=== PATIENT | male | born 1995 | race Two or more races ===

== ENCOUNTER 2016-11-21 17:41 | Emergency (ER) | payer BC, MEDICAID ==
[~2016-11-21] VITALS: Ht 188 cm; Wt 108.9 kg
[2016-11-21] MEDS ORDERED: NKM (18:14)
[2016-11-21 18:29] VITALS: BP 137/81
[2016-11-21] MEDS ORDERED: Famotidine 20 MG/ 2ML VIAL IVP ONE (18:45)
[2016-11-21] MEDS ORDERED: Mylanta II UD 30ml ORAL ONE (18:45)
[2016-11-21] MEDS ORDERED: Dicyclomine HCl 10mg/5ml oral soln ORAL ONE (18:45)
[2016-11-21] MEDS ORDERED: Lidocaine 2% Visc 15ml soln ORAL ONE (18:45)
[2016-11-21 18:56] LABS: APPEARANCE,URINE SLIGHTLY CLOUDY; KETONES,URINE NEGATIVE (NEGATIVE); LEUKOCYTE ESTERASE ,URINE 1+ (NEGATIVE); NITRITE,URINE NEGATIVE (NEGATIVE); PH,URINE 8 (4.5-8.0); PROTEIN,URINE 1+ (NEGATIVE); UROBILINOGEN,URINE NORMAL MG/DL (0.0-1.0)
[2016-11-21 19:18] LABS: BASOPHILS % (AUTO) 1.2 % (0.0-2.0); EOSINOPHILS % (AUTO) 2.9 % (0.0-3.0); LYMPHOCYTES % (AUTO) 21.8 % (20.0-45.0); MEAN CORPUSCULAR HGB CONC 32.9 G/DL (32.0-36.0); MEAN CORPUSCULAR VOLUME 91 FL (80-99); MEAN PLATELET VOLUME 8.2 FL (6.5-10.1); MONOCYTES % (AUTO) 6.6 % (1.0-10.0); NEUTROPHILS % (AUTO) 67.6 % (45.0-75.0); PLATELET COUNT 233 K/UL (150-450); RED BLOOD COUNT 4.97 M/UL (4.70-6.10); RED CELL DISTRIBUTION WIDTH 11.9 % (11.6-14.8)
[2016-11-21 19:31] LABS: RBC,URINE 0-2 /HPF (0 - 0)
[2016-11-21 19:32] LABS: AMORPHOUS SEDIMENT,UR FEW /LPF; BACTERIA,URINE FEW /HPF; WBC,URINE 0-2 /HPF (0 - 0)
[2016-11-21 19:35] VITALS: BP 122/64
[2016-11-21 19:41] LABS: ALANINE AMINOTRANSFERASE 34 U/L (3-41); ALBUMIN/GLOBULIN RATIO 1.7 (1.0-2.7); ANION GAP 16 (5-15); ASPARTATE AMINO TRANSFERASE 23 U/L (5-40); CALCIUM 9.7 mg/dL (8.6-10.2); CARBON DIOXIDE 26 mEQ/L (20-30); CHLORIDE 97 mEQ/L (98-107); CREATININE 1.1 mg/dL (0.7-1.2); GLOMERULAR FILTRATION RATE > 60 mL/min (>60); HEMOLYSIS 10; LIPASE 15 U/L (< 60); POTASSIUM 3.7 mEQ/L (3.4-4.9); SODIUM 139 mEQ/L (135-145); TOTAL PROTEIN 7.3 g/dL (6.6-8.7)
[2016-11-21] MEDS ORDERED: ZOFRAN4 M3 ORAL (19:57)
[2016-11-21] MEDS ORDERED: TYLENOL EXTRA500 MG ORAL (19:57)
[2016-11-21] MEDS ORDERED: PEPCID20 MG ORAL (19:57)
[2016-11-21 20:11] VITALS: BP 122/64
--- NOTE | 2016-11-21 21:03 | Emergency Room Report ---
History of Present Illness General Chief Complaint: Abdominal Pain Source: Patient Present Illness HPI The patient is a 21-year-old male who denies any medical history presenting for right upper abdominal pain which began 3 days prior. The patient states pain is a 9/10 dull ache it does not radiate. The patient has tried Pepto-Bismol and Gas-X which did help. The patient has also had constipation over the past month. Last bowel movement was 2 days prior. The patient denies does admit to nausea but denies vomiting. Patient denies other symptoms including fever, chills, diarrhea, melena, hematochezia Allergies: Coded Allergies: No Known Allergies (Unverified , 11/21/16) Patient History Past Medical History: see triage record Pertinent Family History: none Reviewed Nursing Documentation: PMH: Agreed, PSxH: Agreed Nursing Documentation-PMH Past Medical History: No Stated History Review of Systems All Other Systems: negative except mentioned in HPI Physical Exam Vital Signs Date Time Temp Pulse Resp B/P Pulse Ox O2 Delivery O2 Flow Rate FiO2 11/21/16 18:08 97.7 78 16 137/81 100 Room Air Sp02 EP Interpretation: reviewed, normal General Appearance: no apparent distress, alert, GCS 15, non-toxic Head: normocephalic, atraumatic Eyes: bilateral eye PERRL, bilateral eye normal inspection ENT: hearing grossly normal, normal pharynx, no angioedema, normal voice Neck: full range of motion, supple/symm/no masses Respiratory: chest non-tender, lungs clear, normal breath sounds, speaking full sentences Cardiovascular #1: regular rate, rhythm, no edema Gastrointestinal: normal bowel sounds, soft, non-distended, no guarding, no rebound, tenderness - RUQ and epigastric Genitourinary: normal inspection, no CVA tenderness Musculoskeletal: back normal, gait/station normal, normal range of motion, non- tender Neurologic: alert, oriented x3, responsive, motor strength/tone normal, sensory intact, speech normal Psychiatric: judgement/insight normal, memory normal, mood/affect normal, no suicidal/homicidal ideation Skin: normal color, no rash, warm/dry, well hydrated Lymphatic: no adenopathy Medical Decision Making PA Attestation Dr. Esquivel is my supervising physician. Patient management was discussed with my supervising physician Diagnostic Impression: Primary Impression: Gastroenteritis ER Course The patient is a 21-year-old male who denies any medical history presenting for right upper abdominal pain Differential diagnoses considered include but not limited to gastritis, pancreatitis, appendicitis, Cholecystitis, hepatitis Physical exam: Vitals are within normal limits. No current distress Abdomen: Soft. Nondistended. Normal bowel sounds. There is tenderness to palpation over epigastric and right upper quadrant only. No ecchymosis No CVA tenderness Labs show mild leukocytosis at 11.0 CMP unremarkable urinalysis unremarkable The patient is given a GI cocktail and Pepcid and states pain has ceased completely. The patient is discharged home with a prescription for Zofran, Pepcid, and Tylenol and will follow up with PMD. ER precautions are given Laboratory Tests Test 11/21/16 18:35 11/21/16 18:40 Urine Color Pale yellow Urine Appearance Slightly cloudy Urine pH 8 (4.5-8.0) Urine Specific [place] 1.010 (1.005-1.035) Urine Protein 1+ (NEGATIVE) H Urine Glucose (UA) Negative (NEGATIVE) Urine Ketones Negative (NEGATIVE) Urine Occult Blood Negative (NEGATIVE) Urine Nitrite Negative (NEGATIVE) Urine Bilirubin Negative (NEGATIVE) Urine Urobilinogen Normal MG/DL (0.0-1.0) Urine Leukocyte Esterase 1+ (NEGATIVE) H Urine RBC 0-2 /HPF (0 - 0) H Urine WBC 0-2 /HPF (0 - 0) Urine Squamous Epithelial Cells None /LPF (NONE/OCC) Urine Amorphous Sediment Few /LPF (NONE) H Urine Bacteria Few /HPF (NONE) White Blood Count 11.0 K/UL (4.8-10.8) H Red Blood Count 4.97 M/UL (4.70-6.10) Hemoglobin 14.9 G/DL (14.2-18.0) Hematocrit 45.4 % (42.0-52.0) Mean Corpuscular Volume 91 FL (80-99) Mean Corpuscular Hemoglobin 30.0 PG (27.0-31.0) Mean Corpuscular Hemoglobin Concent 32.9 G/DL (32.0-36.0) Red Cell Distribution Width 11.9 % (11.6-14.8) Platelet Count 233 K/UL (150-450) Mean Platelet Volume 8.2 FL (6.5-10.1) Neutrophils (%) (Auto) 67.6 % (45.0-75.0) Lymphocytes (%) (Auto) 21.8 % (20.0-45.0) Monocytes (%) (Auto) 6.6 % (1.0-10.0) Eosinophils (%) (Auto) 2.9 % (0.0-3.0) Basophils (%) (Auto) 1.2 % (0.0-2.0) Sodium Level 139 mEQ/L (135-145) Potassium Level 3.7 mEQ/L (3.4-4.9) Chloride Level 97 mEQ/L (98-107) L Carbon Dioxide Level 26 mEQ/L (20-30) Anion Gap 16 (5-15) H Blood Urea Nitrogen 10 mg/dL (7-23) Creatinine 1.1 mg/dL (0.7-1.2) Estimate Glomerular Filtration Rate > 60 mL/min (>60) Glucose Level 86 mg/dL (74-106) Calcium Level 9.7 mg/dL (8.6-10.2) Total Bilirubin 0.5 mg/dL (0.0-1.2) Aspartate Amino Transferase (AST) 23 U/L (5-40) Alanine Aminotransferase (ALT) 34 U/L (3-41) Alkaline Phosphatase 82 U/L (40-129) Total Protein 7.3 g/dL (6.6-8.7) Albumin 4.6 g/dL (3.5-5.2) Globulin 2.7 g/dL Albumin/Globulin Ratio 1.7 (1.0-2.7) Lipase 15 U/L (< 60) Lab Results Impression CBC shoes leukocytosis at 11.0 CMP unremarkable. UA unremarkable. Last Vital Signs Date Time Temp Pulse Resp B/P Pulse Ox O2 Delivery O2 Flow Rate FiO2 11/21/16 20:11 97.7 75 20 122/64 100 Room Air Status: improved Disposition: HOME, SELF-CARE Condition: Improved Scripts Famotidine (PEPCID) 20 Mg Tablet 20 MG ORAL DAILY, #7 TAB 0 Refills Prov: CHEMO GRIMES P.A. 11/21/16 Ondansetron* (ZOFRAN*) 4 Mg Tablet 4 MG ORAL Q6H Y for Nausea & Vomiting, #10 TAB Prov: TERTEENAANCHEMO P.A. 11/21/16 Acetaminophen* (TYLENOL EXTRA STRENGTH*) 500 Mg Tablet 500 MG ORAL Q8H Y for Prn Headache/Temp > 101, #30 TAB 0 Refills Prov: CHEMO GRIMES 11/21/16 Patient Instructions: Viral Gastroenteritis, Adult Additional Instructions: I discussed my findings with the patient. All questions and concerns have been answered. Treatment and medication compliance have been addressed. I advised the patient that they need to follow up with PMD in 3-5 days. Return to ED if symptoms worsen, new symptoms arise, or if needed for any reason. Patient verbalized understanding of discharge instructions. CHEMO GRIMES Nov 21, 2016 21:03
== END 2016-11-21 20:12 | disposition home or self-care (01) ==
LOC: EMR 19:29
DX: K52.9 Noninfective gastroenteritis and colitis, unspecified (principal)
CPT/HCPCS: 36415; 80053; 81003; 83690; 85025; 96360; 96374; 99284; S0028

== ENCOUNTER 2018-05-06 16:11 | Emergency (ER) | payer MEDICAID ==
[~2018-05-06] VITALS: Ht 188 cm; Wt 113.4 kg
[~2018-05-06 16:11] MED LIST: NKM; PEPCID20 MG ORAL; TYLENOL EXTRA500 MG ORAL; ZOFRAN4 M3 ORAL
[2018-05-06 16:21] VITALS: BP 123/79
--- NOTE | 2018-05-06 16:50 | Emergency Room Report ---
History of Present Illness General Chief Complaint: Upper Extremity Injury Source: Patient Present Illness HPI Patient is a 23-year-old male presented after increased right upper extremity pain. Patient recent fall and pain to the right shoulder. Patient states he fell yesterday. He denies other locations of pain. He reports having some mild neck pain. He reports having increased decreased range of motion to the right shoulder. The patient states he fell onto his right shoulder while walking downstairs. Allergies: Coded Allergies: No Known Allergies (Unverified , 05/06/18) Patient History Reviewed Nursing Documentation: PMH: Agreed; PSxH: Agreed Nursing Documentation-PMH Past Medical History: No Stated History Review of Systems All Other Systems: negative except mentioned in HPI Physical Exam Vital Signs Date Time Temp Pulse Resp B/P (MAP) Pulse Ox O2 Delivery O2 Flow Rate FiO2 05/06/18 16:17 98.1 73 14 123/79 96 Room Air 98.1 General Appearance: well appearing, no apparent distress, alert, GCS 15, non- toxic Head: normocephalic, atraumatic ENT: hearing grossly normal, normal voice Neck: full range of motion, supple Respiratory: normal inspection, chest non-tender, lungs clear, no respiratory distress, speaking full sentences Cardiovascular #1: normal inspection, normal peripheral pulses, regular rate, rhythm, no edema Gastrointestinal: normal inspection, soft Musculoskeletal: decreased range of mation Neurologic: normal inspection, alert, oriented x3, responsive, 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 Differential diagnoses included was not limited to fracture, dislocation, a.c. separation, septic joint. The x-ray imaging of the right shoulders 3 views read by radiology showed no evidence of acute fracture or dislocation. The patient was given Toradol injection. The patient noted have good pulses in his hand and good perfusion.. The patient was noted to have normal movements of his arm. The patient is advised to follow up with primary care doctor in the next few days. The patient is advised he may need an MRI. He was put in a sling. Patient is advised to return if any worsening condition or if any changes in status that are concerning. This report is dictated with [employer] supervisor wood room software which may occasionally lead to discrepancies related to use of this software. Last Vital Signs Date Time Temp Pulse Resp B/P (MAP) Pulse Ox O2 Delivery O2 Flow Rate FiO2 05/06/18 16:21 98.1 14 123/79 96 Room Air 98.1 05/06/18 16:17 73 Status: unchanged Disposition: HOME, SELF-CARE Condition: Stable Scripts Ibuprofen* (MOTRIN*) 600 Mg Tablet 600 MG ORAL Q8H PRN for For Pain, #30 TAB 0 Refills Prov: Marcos Falk MD 05/06/18 Acetaminophen* (ACETAMINOPHEN EXTRA STRENGTH*) 500 Mg Tablet 500 MG ORAL Q6H, #20 TAB Prov: Marcos Falk MD 05/06/18 Marcos Falk MD May 06, 2018 16:50
[2018-05-06] MEDS ORDERED: Ketorolac 60mg Inj IM ONE (17:00)
[2018-05-06] MEDS ORDERED: IBUPROFEN600 MG ORAL (17:18)
[2018-05-06] MEDS ORDERED: ACETAMINOPHEN500 M3 ORAL (17:18)
[2018-05-06 17:30] VITALS: BP 135/76
--- NOTE | 2018-05-07 14:45 | Diagnostic Imaging Report ---
Indication: Pain Technique: XRAY Shoulder Compl R Comparison: None Findings: Limited exam due to underpenetration. Bone mineralization appears within normal limits. No evidence of acute fracture or dislocation. There is mild Hill-Sachs deformity of the right humeral head. Imaged portions of the right lung are clear. IMPRESSION: No evidence of acute fracture or dislocation. Mild Hill-Sachs deformity of the right humeral head, possibly sequela of prior dislocations.
== END 2018-05-06 17:30 | disposition home or self-care (01) ==
LOC: EMR 16:41 → MERGE 16:41 → EMR 17:30
DX: M25.511 Pain in right shoulder (principal)
CPT/HCPCS: 96372; 99283

== ENCOUNTER 2019-11-25 12:18 | Emergency (ER) | payer MEDICAID, OTHER ==
[~2019-11-25] VITALS: Ht 188 cm; Wt 122.5 kg
[~2019-11-25 12:18] MED LIST changes: +ACETAMINOPHEN500 M3 ORAL; +IBUPROFEN600 MG ORAL
[2019-11-25 12:33] VITALS: BP 137/70
--- NOTE | 2019-11-25 12:36 | NUR ---
ED Nurse Note: Patient walked in to ER c/o abdominal pain, pressure, radiates to the back x 2 weeks, patient started having "black stool, soft, denyed N/V. Reports no fever or chills. Reports no alcohol or drug use. Patient presented calm, cooperative, AAO x4, VSS at this time, skin is warm to touch.
--- NOTE | 2019-11-25 12:52 | Emergency Room Report ---
History of Present Illness General Chief Complaint: Abdominal Pain Source: Patient Present Illness HPI Patient is a 24-year-old male presents after increased generalized abdominal discomfort and discolored stools. Reports having dark stools for the past few days. Intermittent abdominal cramping. Reports having some blood when he wipes. Reports having frequent straining at stools and usually feels constipated. Denies taking any NSAIDs. Denies any prior ulcer history. He states that he has not had any dizziness or lightheadedness. Denies any vomiting or diarrhea. Pain is intermittent. He reports he occasionally using alcohol.Patient had onset of abdominal pain several weeks. Denies any current bloody stools. Allergies: Coded Allergies: No Known Allergies (Unverified , 11/21/16) COVID-19 Screening Contact w/high risk pt: No Recent Travel to affected area: No Experienced COVID-19 symptoms?: No Patient History Past Medical History: see triage record Reviewed Nursing Documentation: PMH: Agreed; PSxH: Agreed Nursing Documentation-PMH Past Medical History: No Stated History Review of Systems All Other Systems: negative except mentioned in HPI Physical Exam Vital Signs Date Time Temp Pulse Resp B/P (MAP) Pulse Ox O2 Delivery O2 Flow Rate FiO2 11/25/19 12:26 98.2 66 15 137/70 (92) 99 Room Air Sp02 EP Interpretation: reviewed, normal General Appearance: normal inspection, well appearing, no apparent distress, alert, GCS 15 Head: atraumatic ENT: normal ENT inspection, hearing grossly normal, normal voice Neck: normal inspection, full range of motion, supple, no bony tend Respiratory: normal inspection, lungs clear, normal breath sounds, no respiratory distress, no retraction, no wheezing Cardiovascular #1: regular rate, rhythm, no edema Gastrointestinal: normal inspection, normal bowel sounds, non tender, soft, no guarding, no hernia Genitourinary: no CVA tenderness Musculoskeletal: normal inspection, back normal, normal range of motion Neurologic: alert, motor strength/tone normal, 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 Differential diagnosis include was not limited to gastritis, ulcer, constipation, hemorrhoids among others. Patient has a benign exam and does not appear to require any imaging or laboratory testing at this time. Patient appears to be have a benign exam. He showed me a picture of some stool which did not appear to be black. Patient does not appear to have any gross blood. Stool occult blood test was noted to be negative for blood. Patient is given prescription for acid blockers as well as a stool softener. He was advised to follow-up with his primary care physician for recheck and GI referral if needed. He was advised to avoid spicy food and acidic food. He is advised to return if any worsening or other concerns. The patient is advised to follow up with primary care doctor in 1-2 days. Patient is advised to return if any worsening condition or if any changes in status that are concerning. This report is dictated with [employer] cuff presser software which may occasionally lead to discrepancies related to use of this software. Last Vital Signs Date Time Temp Pulse Resp B/P (MAP) Pulse Ox O2 Delivery O2 Flow Rate FiO2 11/25/19 12:33 66 15 Room Air 11/25/19 12:33 98.2 137/70 99 Status: improved Disposition: HOME, SELF-CARE Condition: Stable Scripts Docusate Sodium* (COLACE*) 100 Mg Capsule 100 MG ORAL TWICE A DAY, #30 CAP Prov: Marcos Falk MD 11/25/19 Omeprazole Magnesium (PRILOSEC OTC) 20 Mg Tablet. 20 MG ORAL DAILY, #30 TAB Prov: Marcos Falk MD 11/25/19 Marcos Falk MD Nov 25, 2019 12:51
[2019-11-25] MEDS ORDERED: PRILOSEC OTC20 MG ORAL (13:18)
[2019-11-25] MEDS ORDERED: COLACE100 MG ORAL (13:19)
[2019-11-25 13:30] VITALS: BP 128/68
--- NOTE | 2019-11-25 13:30 | NUR ---
ED Nurse Note: Pt cleared by health care Provider for discharge. DC instructions/prescription (sent electronically) was given and explained to pt and verbalized understanding of teachings. All medical devices such as ID band removed. Pt is AAO x4, ambulatory and left with all personal belongings.
== END 2019-11-25 13:30 | disposition home or self-care (01) ==
LOC: EMR 13:21
DX: K59.00 Constipation, unspecified (principal); K29.70 Gastritis, unspecified, without bleeding
CPT/HCPCS: 99282